=== PATIENT | male | born 1990 | race Caucasian/White ===

== ENCOUNTER 2016-08-28 21:42 | Emergency (ER) | payer SELFPAY ==
[~2016-08-28] VITALS: Ht 185.4 cm; Wt 108.9 kg
--- NOTE | 2016-08-28 21:42 | NUR ---
PT [facility] [employer], [employer]. TAKEN TO OF 3
[2016-08-28 21:43] VITALS: BP 129/87
--- NOTE | 2016-08-28 21:44 | NUR ---
26Y M BIB [facility] FOR LAC ON FOREHEAD. PT WAS AT HOME IN APARTMENT AND [employer] PROFESSOR NOTICED PT WITH LAC ON FOREHEAD SO CALLED [facility] FOR SAFETY CHECK. LAKIA FREEMAN STATES PT WAS HITTING HIS HEAD ON BARRIER WINDOW IN PD VEHICLE PRIOR TO ARRIVING TO [facility]. PT DENIES SUCH CLAIM
[2016-08-28 22:12] VITALS: BP 122/91
--- NOTE | 2016-08-28 22:12 | NUR ---
Patient discharged with v/s stable. Written and verbal after care instructions given and explained. Patient verbalized understanding. Ambulance Transport with steady gait. All questions addressed prior to discharge. Advised to follow up with PMD.
== END 2016-08-28 22:12 ==
LOC: MED 21:42
DX: S01.81XA Laceration without foreign body of other part of head, initial encounter (principal); F17.200 Nicotine dependence, unspecified, uncomplicated; W22.8XXA Striking against or struck by other objects, initial encounter; Y93.89 Activity, other specified; Y92.89 Other specified places as the place of occurrence of the external cause; Y99.8 Other external cause status